=== PATIENT | male | born 1935 | race Asian ===

== ENCOUNTER 2019-07-11 13:40 | Inpatient (IN) | payer MEDICARE, OTHER ==
[2019-07-11] MEDS ORDERED: NACL 0.9% 1000 ML 1,000 ML IV ONE (13:58)
[2019-07-11 14:24] LABS: Basophils # (Auto) 0.1 K/mm3 (0.0-0.1); Basophils % (Auto) 1.4 % (0.0-1.8); Eosinophils % (Auto) 12.4 % (0.0-4.3); Hematocrit 42.4 % (35.5-45.6); Lymphocytes # (Auto) 2.9 K/mm3 (1.2-5.4); Mean Corpuscular HGB Conc 33 % (32-34); Mean Corpuscular Volume 87 fl (84-94); Monocytes # (Auto) 0.7 K/mm3 (0.0-0.8); Platelet Count 263 K/mm3 (140-440); Red Blood Count 4.86 M/mm3 (3.65-5.03); Red Cell Distribution Width 13.7 % (13.2-15.2)
[2019-07-11 14:36] LABS: INR 1.09 (0.87-1.13)
--- NOTE | 2019-07-11 14:38 | XRay Report ---
CHEST 1 VIEW INDICATION: Syncope. COMPARISON: None. FINDINGS: Support devices: None. Heart: Upper limits of normal. Lungs/Pleura: Low lung volumes with atelectatic changes in the bases. No pleural abnormality. IMPRESSION: 1. No acute findings. Signer Name: Alvarez Beck MD Signed: 07/11/2019 2:34 PM Workstation Name: [id number]
[2019-07-11 14:41] LABS: BUN/Creatinine Ratio 17; Blood Urea Nitrogen 15 mg/dL (9-20); Calcium 8.9 mg/dL (8.4-10.2); Hemolysis Index 13
[2019-07-11 14:43] LABS: Creatine Kinase MB 2.2 ng/mL (0.0-4.0)
[2019-07-11] MEDS ORDERED: NACL 0.9% 1000 ML IV ONE (14:43)
--- NOTE | 2019-07-11 14:46 | Emergency Department Report ---
ED General Adult HPI - General Chief complaint: Syncope Stated complaint: SYNCOPY Time Seen by Provider: 07/11/19 14:20 Source: patient, EMS, home care aide, RN notes reviewed ( EMS documentation not available at time of chart dictation ), old records reviewed Mode of arrival: Stretcher Limitations: Language Barrier, Other (the patient is a poor historian) - History of Present Illness Initial comments: French foreign language teacher: Respiratory therapist Beronica Corrales This is an 84-year-old gentleman. He reported that he follows with the [facility]. The patient does not know what medications he takes. The patient does not know if he has any chronic medical conditions. The patient is brought to the hospital by emergency medical services. History obtained from collateral information obtained from nursing staff, other physicians in this department, an d from the patient himself. Apparently, the patient was at hindu later on today, in choir (unknown if watching or participating), and reportedly had episode of either syncope, or near syncope. Apparently, the patient did not have any prodrome. The patient does not think that he hit his head. The patient complains of feeling weak. He denies physical pain. He cannot tell me how long he is feeling weak for. He doesn't have any recollection of the event in question. No additional history is available at this time. There are no witnesses available at this time for collateral information. Family is not available at this time for collateral information. As per verbal report from nursing team, patient hypotensive in the field with a blood pressure 85. The patient made no complaint of headache, neck pain, chest pain, abdominal pain. The patient did not know if he was having black stool or bright red blood per rectum. -: Sudden Quality: other Consistency: other Improves with: other Worsens with: other - Related Data Allergies Allergy/AdvReac Type Severity Reaction Status Date / Time No Known Allergies Allergy Verified 07/11/19 14:54 ED Review of Systems ROS: Stated complaint: SYNCOPY Other details as noted in HPI Comment: Unobtainable due to pts medical conditions Constitutional: malaise, weakness Cardiovascular: syncope Gastrointestinal: denies: abdominal pain Neurological: weakness ED Past Medical Hx - Past Medical History Previous Medical History?: Yes Hx Hypertension: Yes Hx Diabetes: Yes - Surgical History Past Surgical History?: No - Social History Smoking Status: Never Smoker Substance Use Type: None ED Physical Exam - General Limitations: Language Barrier, Physical Limitation General appearance: other (patient appears weak and listless) - Head Head exam: Present: atraumatic, normocephalic - Eye Eye exam: Present: normal appearance, EOMI. Absent: nystagmus - ENT ENT exam: Present: mucous membranes dry, normal external ear exam - Neck Neck exam: Present: normal inspection, full ROM. Absent: tenderness, meningismus - Respiratory Respiratory exam: Present: decreased breath sounds. Absent: respiratory distr ess, wheezes, rales, rhonchi, stridor - Cardiovascular Cardiovascular Exam: Present: regular rate, normal rhythm, normal heart sounds. Absent: bradycardia, tachycardia, irregular rhythm, systolic murmur, diastolic murmur, rubs, gallop - GI/Abdominal GI/Abdominal exam: Present: soft. Absent: distended, tenderness, guarding, rebound, rigid, pulsatile mass - Rectal Rectal exam: Present: normal inspection, normal rectal tone, heme (-) stool, other (chaperoned by nurse Aldo Delgado). Absent: black stool, bloody stool - exam: Present: normal inspection External exam: Present: normal external exam, other (chaperoned by nurse Carlson) - Extremities Exam Extremities exam: Present: normal inspection, other (2+ pulses noted in the bilateral upper, lower extremities. There is no long bone tenderness. Musculoskeletal compartments are soft. The pelvis is stable.). Absent: tenderness, calf tenderness - Back Exam Back exam: Present: normal inspection. Absent: tenderness, CVA tenderness (R), CVA tenderness (L), paraspinal tenderness, vertebral tenderness - Neurological Exam Neurological exam: Present: alert, other (there is no facial droop. The tongue is midline. The extraocular movements are intact bilaterally. There is 5/5 strength bilateral upper, lower extremities. The sensation is intact to light touch in 4 extremities.) - Psychiatric Psychiatric exam: Present: flat affect - Skin Skin exam: Present: warm, dry, intact, normal color. Absent: rash ED Course Vital Signs 07/11/19 07/11/19 07/11/19 14:35 15:00 15:01 Pulse Rate 64 65 Respiratory 14 16 Rate Blood Pressure 93/52 117/64 O2 Sat by Pulse 99 98 Oximetry - Reevaluation(s) Reevaluation #1: 10/13/19 15:01 Differential diagnosis, including not limited to: Environmental hypothermia, occult bacteremia, sepsis, pulmonary embolism, thyroid derangement, orthostasis, vagal event, structural cardiac disease, acute coronary syndrome Assessment and plan: 84-year-old elderly gentleman with episode of syncope versus near syncope, history of hypotension in the field, found to be hypothermic in the ER with a core temperature 95.8 degrees, nonfocal physical examination, blood pressure currently in the 120s. Using a bois forte foreign language teacher, we instructed patient that we would recommend IV fluids, empiric antibiotics, CT scan chest abdomen pelvis to exclude pulmonary embolism, and acute surgical process. We will discuss with the [facility] once his data points have been resulted. Active patient rewarming has been ordered. Reevaluation #2: 07/11/19 16:27 CT scan suggests pneumonia in the left lobe. CT scan abdomen and pelvis negative for acute disease, although bladder is distended. The patient is declining catheterization at this time Family has verbally endorse to nursing team that the patient had a negative urinalysis few weeks ago. Contacted the [facility], and discussed with Dr. Escalona, their physician coordinator. He has given authorization for the patient to be admitted to this hospital. On the Hospital physician is paged to arrange admission. Reevaluation #3: 07/11/19 16:33 Dr Conner accepts ED Medical Decision Making - Lab Data Result diagrams: 07/11/19 13:59 07/11/19 13:59 Vital Signs 07/11/19 15:01 Respiratory 16 Rate O2 Sat by Pulse 98 Oximetry Labs 07/11/19 07/11/19 07/11/19 13:59 13:59 13:59 WBC 8.4 RBC 4.86 Hgb 14.0 Hct 42.4 MCV 87 MCH 29 MCHC 33 RDW 13.7 Plt Count 263 Lymph % (Auto) 35.0 Haywood % (Auto) 8.0 H Eos % (Auto) 12.4 H Baso % (Auto) 1.4 Lymph # 2.9 Haywood # 0.7 Eos # 1.0 H Baso # 0.1 Seg Neutrophils % 43.2 Seg Neutrophils # 3.6 PT 13.8 INR 1.09 D-Dimer 194.43 Sodium 140 Potassium 4.1 Chloride 100.0 Carbon Dioxide 19 L Anion Gap 25 BUN 15 Creatinine 0.9 Estimated GFR > 60 BUN/Creatinine Ratio 17 Glucose 174 H Calcium 8.9 Magnesium 2.00 Total Creatine Kinase 85 CK-MB (CK-2) 2.2 CK-MB (CK-2) Rel Index 2.5 Troponin T < 0.010 Blood Type 07/11/19 14:05 WBC RBC Hgb Hct MCV MCH MCHC RDW Plt Count Lymph % (Auto) Haywood % (Auto) Eos % (Auto) Baso % (Auto) Lymph # Haywood # Eos # Baso # Seg Neutrophils % Seg Neutrophils # PT INR D-Dimer Sodium Potassium Chloride Carbon Dioxide Anion Gap BUN Creatinine Estimated GFR BUN/Creatinine Ratio Glucose Calcium Magnesium Total Creatine Kinase CK-MB (CK-2) CK-MB (CK-2) Rel Index Troponin T Blood Type O POSITIVE - EKG Data -: EKG Interpreted by Me EKG shows normal: sinus rhythm Rate: normal - EKG Data When compared to previous EKG there are: previous EKG unavailable 07/11/19 15:04 sinus 83 bpm normal axis qtc 63 bpm not c/w stemi no prior - Radiology Data Radiology results: report reviewed, image reviewed xr chest negative ct head: Critical Care Time: Yes Critical care time in (mins) excluding proc time.: 35 Critical care attestation.: If time is entered above; I have spent that time in minutes in the direct care of this critically ill patient, excluding procedure time. ED Disposition Clinical Impression: Hypothermia, Weakness Disposition: DC-09 OP ADMIT IP TO THIS HOSP Is pt being admited?: Yes Condition: Fair Referrals: PRIMARY CARE, [Primary Care Provider] - 3-5 Days
--- NOTE | 2019-07-11 14:58 | Cat Scan Report ---
CT HEAD WITHOUT CONTRAST INDICATION / CLINICAL INFORMATION: Syncope. TECHNIQUE: All CT scans at this location are performed using CT dose reduction for ALARA by means of automated e xposure control. COMPARISON: None available. FINDINGS: HEMORRHAGE: None. EXTRA-AXIAL SPACES: Mildly prominent likely related to cortical atrophy. VENTRICULAR SYSTEM: Moderately prominent likely related to deep atrophy. CEREBRAL PARENCHYMA: Basal ganglia calcifications. Mild white matter microangiopathy. No acute territ orial infarct. MIDLINE SHIFT OR HERNIATION: None. CEREBELLUM / BRAINSTEM: No significant abnormality. ORBITS: Normal as visualized. SOFT TISSUES of HEAD: No significant abnormality. CALVARIUM: No significant abnormality. PARANASAL SINUSES / MASTOID AIR CELLS: Normal as visualized. ADDITIONAL FINDINGS: None. IMPRESSION: 1. No acute intracranial abnormality. 2. Chronic and age-related findings. Signer Name: Ro Mederos MD Signed: 07/11/2019 2:53 PM Workstation Name: [email or web address]
[2019-07-11] MEDS ORDERED: ROCEPHIN/NS 2 GM/100 ML 2 GM/100 ML BAG IV SCH (15:00)
--- NOTE | 2019-07-11 16:19 | Cat Scan Report ---
CTA CHEST WITH IV CONTRAST INDICATION: near syncope hyypotension hypoxia. TECHNIQUE: Axial CT images were obtained through the chest after injection of IV contrast. 3 plane MIP reconstru ctions were produced. All CT scans at this location are performed using CT dose reduction for ALARA b y means of automated exposure control. COMPARISON: None available. FINDINGS: Pulmonary Arteries: Patient motion limits evaluation of the peripheral pulmonary arterial tree. Accou nting for this, no central PTE is seen. Thoracic Aorta: No acute abnormality. Heart: Normal. Coronary Arteries: No significant calcification. Lungs: There is a partially calcified 1.5 cm nodule in the right lung apex on series 4 image 91. In t he lateral right upper lobe, there is a 5 mm nodule which does not appear calcified (image 41). There is focal consolidative change within the lateral left upper lobe (around image 30 of the same series ). Mild emphysematous changes are noted. No pleural effusion. Pleura: No pleural effusion. No pneumothorax. Lymph Nodes: No significant adenopathy. Additional Findings: None. Skeletal Structures: No significant osseous abnormality. IMPRESSION: 1. Patient respiratory motion limits evaluation of the peripheral pulmonary arterial tree. Accounting for this, no central PTE is seen. 2. Focal consolidation in the lateral left lung apex is likely due to pneumonia. Radiographic follow- up is recommended after treatment to confirm resolution. 3. In addition to 1.5 cm calcified right upper lobe nodule, there is a punctate 5 mm noncalcified rig ht upper lobe nodule. See below for follow-up recommendations. 4. Mild emphysematous changes. INCIDENTAL PULMONARY NODULE RECOMMENDATIONS Solid Nodule size <6 mm -- Single or Multiple - Low Risk Patient: No routine follow-up - High Risk Patient: Optional CT at 12 months Note These recommendations do not apply to lung cancer screening, patients with immunosuppression, o r patients with known primary cancer. Note Newly detected indeterminate nodule in persons 35 years of age or older. Persons under the age of 35 should not receive follow-up unless there is a known primary cancer. Low Risk Patient -- minimal or absent history of smoking and of other known risk factors. High Risk Patient -- history of smoking or of other known risk factors. Nodule dimensions are average of long and short axes, rounded to the nearest millimeter. Based on 2017 Fleischner Society Guidelines found in Radiology 2017 284:228-243. [email or web address] [email or web address] Signer Name: Alvarez Beck MD Signed: 07/11/2019 4:14 PM Workstation Name: [id number]
--- NOTE | 2019-07-11 16:21 | Cat Scan Report ---
CT ABDOMEN AND PELVIS WITH IV CONTRAST INDICATION: near syncope hyypotension hypoxia. COMPARISON: None available. TECHNIQUE: All CT scans at this facility use dose modulation, automated exposure control, iterative reconstructi on or weight based dosing, when appropriate, to reduce radiation dose to as low as reasonably achieva ble. FINDINGS: Skeletal System: No acute abnormality. ABDOMEN: Liver: Mild hepatic steatosis. Simple cysts in the anterior left lobe. Gallbladder: No significant abnormality. Bile Ducts: No significant abnormality. Pancreas: No significant abnormality. Spleen: No significant abnormality. Adrenals: No significant abnormality. Right Kidney: No significant abnormality. There is a simple cyst arising the lateral cortex of the up per pole. Left Kidney: No significant abnormality. Upper GI tract: No significant abnormality. Lymph Nodes: No significant adenopathy. Aorta: No significant abnormality. Additional Findings: No significant abnormality. PELVIS: Colon: No acute abnormality. Right-sided diverticulosis is noted. Urinary Bladder and Distal Ureters: Bladder is mildly distended. Appendix: No significant abnormality. Lymph Nodes: No significant adenopathy. Additional Findings: Prostate is enlarged. IMPRESSION: 1. No acute process in the abdomen or pelvis. 2. Incidental findings, as above. Signer Name: Alvarez Beck MD Signed: 07/11/2019 4:17 PM Workstation Name: [id number]
[2019-07-11] MEDS ORDERED: ZITHROMAX PO ONE (16:32)
[2019-07-11 17:21] LABS: Bilirubin,Urine NEG (Negative); Blood,Urine SM (Negative); Color,Urine Straw (Yellow); Protein,Urine <15 mg/dL mg/dL (Negative); Urobilinogen,Urine < 2.0 mg/dL (<2.0)
[2019-07-11] MEDS ORDERED: NACL 0.9% 1000 ML 1,000 ML ONE (17:43)
[2019-07-11] MEDS ORDERED: ZITHROMAX ONE (18:37)
[2019-07-11] MEDS ORDERED: SODIUM CHLORIDE FLUSH SYRINGE 10 ML IV PRN (21:55)
[2019-07-11] MEDS ORDERED: REGLAN IV PRN (21:55)
[2019-07-11] MEDS ORDERED: ZOFRAN IV PRN (21:55)
[2019-07-11] MEDS ORDERED: PERCOCET 5/325 PO PRN (21:55)
[2019-07-11] MEDS ORDERED: TYLENOL PO PRN (21:55)
[2019-07-11] MEDS ORDERED: DUONEB *Not for PRN Use IH (21:58)
[2019-07-11] MEDS ORDERED: NACL 0.9% 1000 ML 1,000 ML IV SCH (22:00)
[2019-07-11] MEDS ORDERED: PROVENTIL IH PRN (22:16)
[2019-07-11] MEDS: FLOMAX PO SCH (22:53)
[2019-07-11] MEDS: PEPCID PO SCH (22:53)
[2019-07-11] MEDS: SODIUM CHLORIDE FLUSH SYRINGE 10 ML IV SCH (22:54)
[2019-07-11] MEDS: GLUCOPHAGE PO SCH (23:27)
[2019-07-11] MEDS: ZESTRIL PO SCH (23:28)
[2019-07-12 06:35] LABS: Basophils # (Auto) 0.1 K/mm3 (0.0-0.1); Basophils % (Auto) 0.8 % (0.0-1.8); Eosinophils # (Auto) 1.2 K/mm3 (0.0-0.4); Eosinophils % (Auto) 12.8 % (0.0-4.3); Hematocrit 39.7 % (35.5-45.6); Hemoglobin 13.2 gm/dl (11.8-15.2); Lymphocytes # (Auto) 3.3 K/mm3 (1.2-5.4); Mean Corpuscular HGB Conc 33 % (32-34); Mean Corpuscular Volume 87 fl (84-94); Monocytes # (Auto) 0.7 K/mm3 (0.0-0.8); Monocytes % (Auto) 7.9 % (0.0-7.3); Platelet Count 234 K/mm3 (140-440); Red Blood Count 4.59 M/mm3 (3.65-5.03); Red Cell Distribution Width 13.6 % (13.2-15.2)
[2019-07-12 06:56] LABS: Alanine Aminotransferase 29 units/L (7-56); Albumin 3.4 g/dL (3.9-5); BUN/Creatinine Ratio 20; Blood Urea Nitrogen 14 mg/dL (9-20); Calcium 7.8 mg/dL (8.4-10.2); Hemolysis Index 6
--- NOTE | 2019-07-12 07:03 | Event Note ---
Date: 07/11/19 See H/p in reports LLL pneumonia
[2019-07-12] MEDS ORDERED: NON-FORMULARY (Gabapentin [Neurontin] 800 MG) PO SCH (08:00)
--- NOTE | 2019-07-12 08:35 | History and Physical Report ---
CHIEF COMPLAINT: Passed out a couple of hours ago. HISTORY OF PRESENT ILLNESS: An 84-year-old Fijian male, apparently passed out at the mandaeism. The patient also complains of feeling weak and having cough. Cough productive of yellow sputum. No chest pain. Feels weak. No exacerbating or relieving factors. PAST MEDICAL HISTORY: Significant for hypertension, diabetes, and BPH. PAST SURGICAL HISTORY: None. SOCIAL HISTORY: Does not smoke. No alcohol, no recreational drugs. FAMILY HISTORY: Hypertension. REVIEW OF SYSTEMS: Significant for syncope and cough. Generalized weakness. Otherwise, review of systems negative. PHYSICAL EXAMINATION: GENERAL: Elderly male, cooperative during examination. VITAL SIGNS: Blood pressure is 146/62, temperature is 97.8, pulse is 73, sats are 99%. HEENT: Unremarkable. Pupils equal and reactive. NECK: Supple, no lymphadenopathy, no thyromegaly. LUNGS: Clear to auscultation and percussion. Good air entry. CARDIOVASCULAR: S1, S2 heard. No gallop, no murmur, no rub. Apical impulse in left fifth intercostal space in midclavicular line. ABDOMEN: Soft and benign. No hepatosplenomegaly. No guarding, no rigidity. Hernial orifices are normal. EXTREMITIES: Good pedal pulses. No pedal edema. CENTRAL NERVOUS SYSTEM: Alert and oriented x 4, nonfocal exam. SKIN: Normal. LABORATORY DATA: CBC is normal. Electrolytes are normal. Lactic acid is 3.9. Hemoglobin A1c is 7.9, glucose is 174. Albumin is 3.4. Urine is negative. Chest x-ray shows left lower lobe pneumonia. Abdominal pelvis CT shows no acute process in the abdomen or pelvis, significant for findings as above. ASSESSMENT AND PLAN: 1. Left lower lobe pneumonia. The patient initiated on Rocephin and azithromycin. Bronchodilators as necessary. 2. Hypertension. Continue antihypertensives in the form of lisinopril. 3. Type 2 diabetes. Continue metformin and Accu-Cheks. The patient may need to be on oral hypoglycemics, A1c is high. 4. Peripheral neuropathy. Continue gabapentin. 5. Benign prostatic hypertrophy. Continue Flomax 0.4 mg daily. 6. Deep venous thrombosis prophylaxis, Lovenox 40 mg subcutaneous daily and gastrointestinal prophylaxis. JOB# [id number] VSM/NTS MTDD
[2019-07-12] MEDS: HumaLOG SUB-Q SCH ×4 (10:26→23:23)
[2019-07-12] MEDS: SODIUM CHLORIDE FLUSH SYRINGE 10 ML IV SCH ×2 (10:26→23:23)
[2019-07-12] MEDS: ROCEPHIN/NS 2 GM/100 ML 2 GM/100 ML BAG IV SCH (10:28)
[2019-07-12] MEDS: GLUCOPHAGE PO SCH ×2 (10:29→17:46)
[2019-07-12] MEDS: PEPCID PO SCH ×2 (10:29→23:21)
[2019-07-12] MEDS: NEURONTIN PO SCH ×3 (10:29→23:21)
[2019-07-12] MEDS: ZESTRIL PO SCH (10:29)
[2019-07-12] MEDS: ZITHROMAX 500 MG in NACL 0.9% 250ML 250 ML IV SCH (10:31)
[2019-07-12] MEDS: FLOMAX PO SCH (10:31)
--- NOTE | 2019-07-12 10:53 | Consultation ---
History of Present Illness Consult date: 07/12/19 Consult reason: other (Near syncope) History of present illness: This is an 84-year old [place] male who was brought in with dizziness, admitt ed with near syncope. There were no report of chest pain, unusual shortness of breath or palpitations. Patient did not loose consciousness. Patient has a history of Diabetes, Hypertension and is followed by [facility]. There is no history of coronary artery disease. The patient had no recent cardiac workup. Chest x- ray is negative. A chest CTA reports suspected left sided pneumonia. Incidental finding of right upper lobe nodules. No evidence of PE. An ECG done on presentation is a normal sinus rhythm. Medications and Allergies Allergies Allergy/AdvReac Type Severity Reaction Status Date / Time No Known Allergies Allergy Verified 07/11/19 14:54 Home Medications Medication Instructions Recorded Confirmed Last Taken Type Gabapentin [Neurontin] 800 mg PO TID 07/11/19 07/11/19 Unknown History Lisinopril [Zestril TAB] 10 mg PO QDAY 07/11/19 07/11/19 Unknown History Tamsulosin [Flomax] 0.4 mg PO QDAY 07/11/19 07/11/19 Unknown History metFORMIN [Glucophage] 500 mg PO BID 07/11/19 07/11/19 Unknown History Active Meds: Active Medications Acetaminophen (Tylenol) 650 mg PO Q4H PRN PRN Reason: Pain MILD(1-3)/Fever >100.5/AMANDA Albuterol (Proventil) 2.5 mg IH Q3HRT PRN PRN Reason: Wheezing Enoxaparin Sodium (Lovenox) 40 mg SUB-Q QDAY@2200 RJ Famotidine (Pepcid) 20 mg PO BID [facility] Last Admin: 07/12/19 10:29 Dose: 20 mg Documented by: Gabapentin (Neurontin) 800 mg PO TID [facility] Last Admin: 07/12/19 10:29 Dose: 800 mg Documented by: Sodium Chloride (Nacl 0.9% 1000 Ml) 1,000 mls @ 75 mls/hr IV DIRECT RJ Stop: 07/12/19 11:00 Last Admin: 07/11/19 23:29 Dose: 75 mls/hr Documented by: Azithromycin 500 mg/ Sodium (Chloride) 250 mls @ 250 mls/hr IV Q24HR [facility]; Protocol Stop: 07/15/19 23:59 Last Admin: 07/12/19 10:31 Dose: 250 mls/hr Documented by: Ceftriaxone Sodium (Rocephin/Ns 2 Gm/100 Ml) 2 gm in 100 mls @ 200 mls/hr IV Q24HR [facility]; Protocol Last Admin: 07/12/19 10:28 Dose: 200 mls/hr Documented by: Insulin Human Lispro (Humalog) 0 unit SUB-Q ACHS [facility]; Protocol Last Admin: 07/12/19 10:26 Dose: Not Given Documented by: Lisinopril (Zestril) 10 mg PO QDAY [facility] Last Admin: 07/12/19 10:29 Dose: 10 mg Documented by: Metformin HCl (Glucophage) 500 mg PO BIDDIAB [facility] Last Admin: 07/12/19 10:29 Dose: 500 mg Documented by: Metoclopramide HCl (Reglan) 10 mg IV Q6H PRN PRN Reason: Nausea And Vomiting Ondansetron HCl (Zofran) 4 mg IV Q8H PRN PRN Reason: Nausea And Vomiting Oxycodone/Acetaminophen (Percocet 5/325) 1 tab PO Q6H PRN PRN Reason: Pain, Moderate (4-6) Sodium Chloride (Sodium Chloride Flush Syringe 10 Ml) 10 ml IV BID [facility] Last Admin: 07/12/19 10:26 Dose: 10 ml Documented by: Sodium Chloride (Sodium Chloride Flush Syringe 10 Ml) 10 ml IV PRN PRN PRN Reason: LINE FLUSH Tamsulosin HCl (Flomax) 0.4 mg PO QDAY [facility] Last Admin: 07/12/19 10:31 Dose: 0.4 mg Documented by: Physical Examination Vital Signs Pulse BP 64 93/52 07/11/19 14:35 07/11/19 14:35 General appearance: no acute distress HEENT: Positive: PERRL Neck: Positive: trachea midline Cardiac: Positive: Reg Rate and Rhythm Lungs: Positive: Decreased Breath Sounds Neuro: Positive: Grossly Intact Extremities: Absent: edema Results 07/12/19 05:27 07/12/19 05:27 Cardiac Enzymes 07/11/19 07/12/19 Range/Units 13:59 05:27 AST 20 (5-40) units/L CK-MB (CK-2) 2.2 (0.0-4.0) ng/mL Coagulation 10/13/19 Range/Units 13:59 PT 13.8 (12.2-14.9) Sec. INR 1.09 (0.87-1.13) CBC 07/11/19 07/12/19 Range/Units 13:59 05:27 WBC 8.4 9.4 (4.5-11.0) K/mm3 RBC 4.86 4.59 (3.65-5.03) M/mm3 Hgb 14.0 13.2 (11.8-15.2) gm/dl Hct 42.4 39.7 (35.5-45.6) % Plt Count 263 234 (140-440) K/mm3 Lymph # 2.9 3.3 (1.2-5.4) K/mm3 Bennett # 0.7 0.7 (0.0-0.8) K/mm3 Eos # 1.0 H 1.2 H (0.0-0.4) K/mm3 Baso # 0.1 0.1 (0.0-0.1) K/mm3 Comprehensive Metabolic Panel 07/11/19 07/12/19 Range/Units 13:59 05:27 Sodium 140 143 (137-145) mmol/L Potassium 4.1 3.9 (3.6-5.0) mmol/L Chloride 100.0 111.4 H (98-107) mmol/L Carbon Dioxide 19 L 19 L (22-30) mmol/L BUN 15 14 (9-20) mg/dL Creatinine 0.9 0.7 L (0.8-1.5) mg/dL Glucose 174 H 156 H (75-100) mg/dL Calcium 8.9 7.8 L (8.4-10.2) mg/dL AST 20 (5-40) units/L ALT 29 (7-56) units/L Alkaline Phosphatase 68 (35-129) units/L Total Protein 6.0 L (6.3-8.2) g/dL Albumin 3.4 L (3.9-5) g/dL Assessment and Plan Near syncope Suspected Pneumonia Diabetes Hypertension Plan: Echocardiogram for LVEF assessment. Pre-discharge persantine thallium stress test.
--- NOTE | 2019-07-12 12:07 | Progress Note ---
Assessment and Plan Assessment and plan: Syncope Admitted to [facility] Cardiology following For stress test in am Obtain orthostatics Pneumonia LLL Cont Ceftriaxone and Zithromax Diabeytes mellitus type 2 Fingerstick qac and hs Hypertension Monitor BP Full code status History Interval history: Patient passed out in [facility] Hospitalist Physical - Physical exam Narrative exam: Gen: Not in acute distress, sitting up in bed HEENT: Normocephalic, atraumatic Neck: supple, no JVD Heart: S1 and S2 reg, no murmurs, rubs or gallop Lungs: Clear to auscultation, no rhonchi, no wheeze Abd: soft, non tender, non distended, normal BS, Ext: No edema, no clubbing, no cyanosis Neuro: Awake, alert, oriented, moves all ext, no focal neurological signs - Constitutional Vitals: Temp Pulse Resp BP Pulse Ox 98.5 F 61 18 139/62 95 07/12/19 07:49 07/12/19 07:49 07/12/19 07:49 07/12/19 07:49 07/12/19 07:49 General appearance: Present: no acute distress Results - Labs CBC & Chem 7: 07/12/19 05:27 07/12/19 05:27 Labs: Laboratory Last Values WBC 9.4 K/mm3 (4.5-11.0) 07/12/19 05:27 RBC 4.59 M/mm3 (3.65-5.03) 07/12/19 05:27 Hgb 13.2 gm/dl (11.8-15.2) 07/12/19 05:27 Hct 39.7 % (35.5-45.6) 07/12/19 05:27 MCV 87 fl (84-94) 07/12/19 05:27 MCH 29 pg (28-32) 07/12/19 05:27 MCHC 33 % (32-34) 07/12/19 05:27 RDW 13.6 % (13.2-15.2) 07/12/19 05:27 Plt Count 234 K/mm3 (140-440) 07/12/19 05:27 Lymph % (Auto) 35.0 % (13.4-35.0) 07/12/19 05:27 [place] % (Auto) 7.9 % (0.0-7.3) H 07/12/19 05:27 Eos % (Auto) 12.8 % (0.0-4.3) H 07/12/19 05:27 Baso % (Auto) 0.8 % (0.0-1.8) 07/12/19 05:27 Lymph # 3.3 K/mm3 (1.2-5.4) 07/12/19 05:27 [place] # 0.7 K/mm3 (0.0-0.8) 07/12/19 05:27 Eos # 1.2 K/mm3 (0.0-0.4) H 07/12/19 05:27 Baso # 0.1 K/mm3 (0.0-0.1) 07/12/19 05:27 Seg Neutrophils % 43.5 % (40.0-70.0) 07/12/19 05:27 Seg Neutrophils # 4.1 K/mm3 (1.8-7.7) 07/12/19 05:27 PT 13.8 Sec. (12.2-14.9) 07/11/19 13:59 INR 1.09 (0.87-1.13) 07/11/19 13:59 D-Dimer 194.43 ng/mlDDU (0-234) 07/11/19 13:59 Sodium 143 mmol/L (137-145) 07/12/19 05:27 Potassium 3.9 mmol/L (3.6-5.0) 07/12/19 05:27 Chloride 111.4 mmol/L (98-107) H 07/12/19 05:27 Carbon Dioxide 19 mmol/L (22-30) L 07/12/19 05:27 Anion Gap 17 mmol/L 07/12/19 05:27 BUN 14 mg/dL (9-20) 07/12/19 05:27 Creatinine 0.7 mg/dL (0.8-1.5) L 07/12/19 05:27 Estimated GFR > 60 ml/min 07/12/19 05:27 BUN/Creatinine Ratio 20 % 07/12/19 05:27 Glucose 156 mg/dL (75-100) H 07/12/19 05:27 POC Glucose 189 (70-105) H 07/12/19 11:41 Hemoglobin A1c 7.9 % (4-6) H 07/11/19 13:59 Lactic Acid 1.80 mmol/L (0.7-2.0) 07/11/19 20:06 Calcium 7.8 mg/dL (8.4-10.2) L 07/12/19 05:27 Magnesium 2.00 mg/dL (1.7-2.3) 07/11/19 13:59 Total Bilirubin 0.70 mg/dL (0.1-1.2) 07/12/19 05:27 AST 20 units/L (5-40) 07/12/19 05:27 ALT 29 units/L (7-56) 07/12/19 05:27 Alkaline Phosphatase 68 units/L (35-129) 07/12/19 05:27 Total Creatine Kinase 85 units/L (55-170) 07/11/19 13:59 CK-MB (CK-2) 2.2 ng/mL (0.0-4.0) 07/11/19 13:59 CK-MB (CK-2) Rel Index 2.5 (0-4) 07/11/19 13:59 Troponin T < 0.010 ng/mL (0.00-0.029) 07/11/19 13:59 Total Protein 6.0 g/dL (6.3-8.2) L 07/12/19 05:27 Albumin 3.4 g/dL (3.9-5) L 07/12/19 05:27 Albumin/Globulin Ratio 1.3 % 07/12/19 05:27 TSH 3.750 mlU/mL (0.270-4.200) 07/11/19 15:07 Free T4 1.40 ng/dL (0.76-1.46) 07/11/19 15:07 Urine Color Straw (Yellow) 07/11/19 Unknown Urine Turbidity Clear (Clear) 07/11/19 Unknown Urine pH 7.0 (5.0-7.0) 07/11/19 Unknown Ur Specific [place] 1.016 (1.003-1.030) 07/11/19 Unknown Urine Protein <15 mg/dl mg/dL (Negative) 07/11/19 Unknown Urine Glucose (UA) Neg mg/dL (Negative) 07/11/19 Unknown Urine Ketones Neg mg/dL (Negative) 07/11/19 Unknown Urine Blood Sm (Negative) 07/11/19 Unknown Urine Nitrite Neg (Negative) 07/11/19 Unknown Urine Bilirubin Neg (Negative) 07/11/19 Unknown Urine Urobilinogen < 2.0 mg/dL (<2.0) 07/11/19 Unknown Ur Leukocyte Esterase Neg (Negative) 07/11/19 Unknown Urine WBC (Auto) 2.0 /HPF (0.0-6.0) 07/11/19 Unknown Urine RBC (Auto) 1.0 /HPF (0.0-6.0) 07/11/19 Unknown U Epithel Cells (Auto) < 1.0 /HPF (0-13.0) 07/11/19 Unknown Salicylates < 0.3 mg/dL (2.8-20.0) L 07/11/19 15:07 Acetaminophen < 5.0 ug/mL (10.0-30.0) L 07/11/19 15:07 Blood Type O POSITIVE 07/11/19 14:05 Antibody Screen Negative 07/11/19 14:05 Active Medications - Current Medications Current Medications: Generic Name Dose Route Start Last Admin Trade Name Freq PRN Reason Stop Dose Admin Acetaminophen 650 mg 07/11/19 21:55 Tylenol PO Q4H PRN Pain MILD(1-3)/Fever >100.5/AMANDA Albuterol 2.5 mg 07/11/19 22:16 Proventil IH Q3HRT PRN Wheezing Enoxaparin Sodium 40 mg 07/12/19 22:00 Lovenox SUB-Q QDAY@2200 RJ Famotidine 20 mg 07/11/19 22:00 07/12/19 10:29 Pepcid PO 20 mg BID RJ Administration Gabapentin 800 mg 07/12/19 08:00 07/12/19 10:29 Neurontin PO 800 mg TID RJ Administration Azithromycin 500 mg/ Sodium 250 mls @ 250 mls/hr 07/12/19 10:00 07/12/19 10:31 Chloride IV 07/15/19 23:59 250 mls/hr Q24HR RJ Administration Protocol Ceftriaxone Sodium 2 gm in 100 mls @ 200 mls/hr 07/12/19 10:00 07/12/19 10:28 Rocephin/Ns 2 Gm/100 Ml IV 200 mls/hr Q24HR RJ Administration Protocol Insulin Human Lispro 0 unit 07/12/19 07:30 07/12/19 10:26 Humalog SUB-Q Not Given ACHS RJ Protocol Lisinopril 10 mg 07/11/19 22:00 07/12/19 10:29 Zestril PO 10 mg QDAY RJ Administration Metformin HCl 500 mg 07/11/19 22:00 07/12/19 10:29 Glucophage PO 500 mg BIDDIAB RJ Administration Metoclopramide HCl 10 mg 07/11/19 21:55 Reglan IV Q6H PRN Nausea And Vomiting Ondansetron HCl 4 mg 07/11/19 21:55 Zofran IV Q8H PRN Nausea And Vomiting Oxycodone/Acetaminophen 1 tab 07/11/19 21:55 Percocet 5/325 PO Q6H PRN Pain, Moderate (4-6) Sodium Chloride 10 ml 07/11/19 22:00 07/12/19 10:26 Sodium Chloride Flush Syringe 10 Ml IV 10 ml BID RJ Administration Sodium Chloride 10 ml 07/11/19 21:55 Sodium Chloride Flush Syringe 10 Ml IV PRN PRN LINE FLUSH Tamsulosin HCl 0.4 mg 07/11/19 22:00 07/12/19 10:31 Flomax PO 0.4 mg QDAY RJ Administration
--- NOTE | 2019-07-12 16:22 | Consultation ---
History of Present Illness Consult date: 07/12/19 Requesting physician: FRANCO TANG Reason for consult: pneumonia History of present illness: 84 yo developed diaphoresis and near-syncopal episode yesterday, without complaints of SOB, chest pain, fevers, chills, cough, sputum, hemoptysis. CTA chest showed pneumonia and nodule. Active Medications Acetaminophen (Tylenol) 650 mg PO Q4H PRN PRN Reason: Pain MILD(1-3)/Fever >100.5/AMANDA Albuterol (Proventil) 2.5 mg IH Q3HRT PRN PRN Reason: Wheezing Enoxaparin Sodium (Lovenox) 40 mg SUB-Q QDAY@2200 RJ Famotidine (Pepcid) 20 mg PO BID [facility] Last Admin: 07/12/19 10:29 Dose: 20 mg Documented by: Gabapentin (Neurontin) 800 mg PO TID [facility] Last Admin: 07/12/19 15:14 Dose: 800 mg Documented by: Azithromycin 500 mg/ Sodium (Chloride) 250 mls @ 250 mls/hr IV Q24HR [facility]; Protocol Stop: 07/15/19 23:59 Last Admin: 07/12/19 10:31 Dose: 250 mls/hr Documented by: Ceftriaxone Sodium (Rocephin/Ns 2 Gm/100 Ml) 2 gm in 100 mls @ 200 mls/hr IV Q24HR [facility]; Protocol Last Admin: 07/12/19 10:28 Dose: 200 mls/hr Documented by: Insulin Human Lispro (Humalog) 0 unit SUB-Q ACHS [facility]; Protocol Last Admin: 07/12/19 12:34 Dose: 2 unit Documented by: Lisinopril (Zestril) 10 mg PO QDAY [facility] Last Admin: 07/12/19 10:29 Dose: 10 mg Documented by: Metformin HCl (Glucophage) 500 mg PO BIDDIAB [facility] Last Admin: 07/12/19 10:29 Dose: 500 mg Documented by: Metoclopramide HCl (Reglan) 10 mg IV Q6H PRN PRN Reason: Nausea And Vomiting Ondansetron HCl (Zofran) 4 mg IV Q8H PRN PRN Reason: Nausea And Vomiting Oxycodone/Acetaminophen (Percocet 5/325) 1 tab PO Q6H PRN PRN Reason: Pain, Moderate (4-6) Sodium Chloride (Sodium Chloride Flush Syringe 10 Ml) 10 ml IV BID [facility] Last Admin: 07/12/19 10:26 Dose: 10 ml Documented by: Sodium Chloride (Sodium Chloride Flush Syringe 10 Ml) 10 ml IV PRN PRN PRN Reason: LINE FLUSH Tamsulosin HCl (Flomax) 0.4 mg PO QDAY [facility] Last Admin: 07/12/19 10:31 Dose: 0.4 mg Documented by: Past History Past Medical History: other (BPH, Peripheral neuropathy, HTN) Social history: full code. denies: smoking, alcohol abuse, prescription drug abuse, IV drug use Family history: other (No pulm issues) Medications and Allergies Allergies Allergy/AdvReac Type Severity Reaction Status Date / Time No Known Allergies Allergy Verified 07/11/19 14:54 Home Medications Medication Instructions Recorded Confirmed Last Taken Type Gabapentin [Neurontin] 800 mg PO TID 07/11/19 07/11/19 Unknown History Lisinopril [Zestril TAB] 10 mg PO QDAY 07/11/19 07/11/19 Unknown History Tamsulosin [Flomax] 0.4 mg PO QDAY 07/11/19 07/11/19 Unknown History metFORMIN [Glucophage] 500 mg PO BID 07/11/19 07/11/19 Unknown History Active Meds: Active Medications Acetaminophen (Tylenol) 650 mg PO Q4H PRN PRN Reason: Pain MILD(1-3)/Fever >100.5/AMANDA Albuterol (Proventil) 2.5 mg IH Q3HRT PRN PRN Reason: Wheezing Enoxaparin Sodium (Lovenox) 40 mg SUB-Q QDAY@2200 [facility] Famotidine (Pepcid) 20 mg PO BID [facility] Last Admin: 07/12/19 10:29 Dose: 20 mg Documented by: Gabapentin (Neurontin) 800 mg PO TID [facility] Last Admin: 07/12/19 15:14 Dose: 800 mg Documented by: Azithromycin 500 mg/ Sodium (Chloride) 250 mls @ 250 mls/hr IV Q24HR [facility]; Protocol Stop: 07/15/19 23:59 Last Admin: 07/12/19 10:31 Dose: 250 mls/hr Documented by: Ceftriaxone Sodium (Rocephin/Ns 2 Gm/100 Ml) 2 gm in 100 mls @ 200 mls/hr IV Q24HR [facility]; Protocol Last Admin: 07/12/19 10:28 Dose: 200 mls/hr Documented by: Insulin Human Lispro (Humalog) 0 unit SUB-Q ACHS [facility]; Protocol Last Admin: 07/12/19 12:34 Dose: 2 unit Documented by: Lisinopril (Zestril) 10 mg PO QDAY [facility] Last Admin: 07/12/19 10:29 Dose: 10 mg Documented by: Metformin HCl (Glucophage) 500 mg PO BIDDIAB [facility] Last Admin: 07/12/19 10:29 Dose: 500 mg Documented by: Metoclopramide HCl (Reglan) 10 mg IV Q6H PRN PRN Reason: Nausea And Vomiting Ondansetron HCl (Zofran) 4 mg IV Q8H PRN PRN Reason: Nausea And Vomiting Oxycodone/Acetaminophen (Percocet 5/325) 1 tab PO Q6H PRN PRN Reason: Pain, Moderate (4-6) Sodium Chloride (Sodium Chloride Flush Syringe 10 Ml) 10 ml IV BID [facility] Last Admin: 07/12/19 10:26 Dose: 10 ml Documented by: Sodium Chloride (Sodium Chloride Flush Syringe 10 Ml) 10 ml IV PRN PRN PRN Reason: LINE FLUSH Tamsulosin HCl (Flomax) 0.4 mg PO QDAY [facility] Last Admin: 07/12/19 10:31 Dose: 0.4 mg Documented by: Review of Systems All systems: negative Physical Examination Vital signs: Vital Signs Pulse BP 64 93/52 07/11/19 14:35 07/11/19 14:35 Vital Signs - 24 hr 07/11/19 07/11/19 07/11/19 17:01 17:30 17:41 Temperature Pulse Rate 70 68 67 Respiratory 17 12 21 Rate Blood Pressure 140/71 146/62 146/62 O2 Sat by Pulse 98 100 98 Oximetry 07/11/19 07/11/19 07/11/19 17:51 18:00 18:17 Temperature Pulse Rate 63 67 Respiratory 17 15 Rate Blood Pressure 146/62 150/58 146/62 O2 Sat by Pulse 97 99 97 Oximetry 07/11/19 07/11/19 07/11/19 18:21 18:31 21:10 Temperature 97.8 F Pulse Rate 73 Respiratory 20 Rate Blood Pressure 146/62 140/68 167/73 O2 Sat by Pulse 99 99 96 Oximetry 07/11/19 07/12/19 07/12/19 23:28 02:51 07:49 Temperature 98.4 F 98.5 F Pulse Rate 73 70 61 Respiratory 18 18 Rate Blood Pressure 167/73 146/64 139/62 O2 Sat by Pulse 97 95 Oximetry 07/12/19 13:12 Temperature 98.0 F Pulse Rate 63 Respiratory 18 Rate Blood Pressure 153/70 O2 Sat by Pulse 99 Oximetry General appearance: no acute distress, alert Eyes: non-icteric Neck: supple Effort: normal Ascultation: Bilateral: clear Cardiovascular: regular rate and rhythm (no mrg) Gastrointestinal: normoactive bowel sounds, soft, non-tender, non-distended Integumentary: normal Extremities: no cyanosis, no edema, pink and warm Musculoskeletal: no deformities normal mental status, non-focal exam, pupils equal and round, CN II-XII normal mood appropriate, affect normal Results - Laboratory Findings CBC and BMP: 07/12/19 05:27 07/12/19 05:27 PT/INR, D-dimer PT 13.8 Sec. (12.2-14.9) 07/11/19 13:59 INR 1.09 (0.87-1.13) 07/11/19 13:59 D-Dimer 194.43 ng/mlDDU (0-234) 07/11/19 13:59 Abnormal lab findings: Abnormal Labs 07/11/19 07/11/19 07/11/19 13:59 13:59 13:59 [place] % (Auto) 8.0 H Eos % (Auto) 12.4 H Eos # 1.0 H Chloride Carbon Dioxide 19 L Creatinine Glucose 174 H POC Glucose Hemoglobin A1c 7.9 H Lactic Acid Calcium Total Protein Albumin Salicylates Acetaminophen 07/11/19 07/11/19 07/11/19 15:07 15:07 15:07 [place] % (Auto) Eos % (Auto) Eos # Chloride Carbon Dioxide Creatinine Glucose POC Glucose Hemoglobin A1c Lactic Acid 3.90 H* Calcium Total Protein Albumin Salicylates < 0.3 L Acetaminophen < 5.0 L 07/11/19 07/11/19 07/12/19 15:58 23:06 05:27 [place] % (Auto) 7.9 H Eos % (Auto) 12.8 H Eos # 1.2 H Chloride Carbon Dioxide Creatinine Glucose POC Glucose 147 H 187 H Hemoglobin A1c Lactic Acid Calcium Total Protein Albumin Salicylates Acetaminophen 07/12/19 07/12/19 07/12/19 05:27 07:47 11:41 [place] % (Auto) Eos % (Auto) Eos # Chloride 111.4 H Carbon Dioxide 19 L Creatinine 0.7 L Glucose 156 H POC Glucose 120 H 189 H Hemoglobin A1c Lactic Acid Calcium 7.8 L Total Protein 6.0 L Albumin 3.4 L Salicylates Acetaminophen - Diagnostic Findings Chest x-ray: report reviewed, image reviewed CT scan - chest: report reviewed, image reviewed Assessment and Plan Imp: 1. CAP, JENNY 2. Pulm nodule RUL 3. Pre-syncope 4. HTN Rec: 1. Agree w/ Rocephin/Azithro; complete at least 7 days of ABX 2. Outpatient PET recommended for RUL nodule, and this will be used to ensure the JENNY process resolves as well 3. Cardiac work-up as recommended No family present and patient does not speak [place]. Thanks for the consult.
[2019-07-12] MEDS: LOVENOX SUB-Q SCH (23:21)
[2019-07-13 06:25] LABS: Hematocrit 41.2 % (35.5-45.6); Hemoglobin 13.5 gm/dl (11.8-15.2); Mean Corpuscular HGB Conc 33 % (32-34); Mean Corpuscular Volume 87 fl (84-94); Platelet Count 248 K/mm3 (140-440); Red Blood Count 4.73 M/mm3 (3.65-5.03); Red Cell Distribution Width 13.7 % (13.2-15.2)
[2019-07-13 06:41] LABS: BUN/Creatinine Ratio 25; Blood Urea Nitrogen 15 mg/dL (9-20); Calcium 8.6 mg/dL (8.4-10.2); Hemolysis Index 14
[2019-07-13] MEDS ORDERED: LEXISCAN IV ONE ×2 (07:04→07:43)
[2019-07-13] MEDS: HumaLOG SUB-Q SCH ×4 (07:55→22:17)
[2019-07-13] MEDS: NEURONTIN PO SCH ×3 (08:19→22:16)
[2019-07-13] MEDS: GLUCOPHAGE PO SCH ×2 (08:19→17:46)
[2019-07-13] MEDS: PEPCID PO SCH ×2 (11:49→22:16)
[2019-07-13] MEDS: FLOMAX PO SCH (11:49)
[2019-07-13] MEDS: ZESTRIL PO SCH (11:50)
[2019-07-13] MEDS: ROCEPHIN/NS 2 GM/100 ML 2 GM/100 ML BAG IV SCH (11:50)
[2019-07-13] MEDS: SODIUM CHLORIDE FLUSH SYRINGE 10 ML IV SCH ×2 (11:50→22:17)
[2019-07-13] MEDS: ZITHROMAX 500 MG in NACL 0.9% 250ML 250 ML IV SCH (12:35)
--- NOTE | 2019-07-13 13:09 | Event Note ---
Date: 07/13/19 Patient underwent a Lexiscan thallium stress test, normal myocardial perfusion and normal left ventricular systolic function. Echocardiogram shows normal left ventricle systolic function, ejection fraction 60-65%. The patient is stable for cardiac discharge. As outpatient, we will consider event monitoring if there are recurrent symptoms.
--- NOTE | 2019-07-13 16:38 | Progress Note ---
Assessment and Plan Imp: 1. CAP, JENNY 2. Pulm nodule RUL 3. Pre-syncope 4. HTN Rec: 1. Agree w/ Rocephin/Azithro; complete at least 7 days of ABX 2. Outpatient PET recommended for RUL nodule, and this will be used to ensure the JENNY process resolves as well; I attempted to call family to discuss this with them today but no answer; patient is followed in the [facility] 3. Cardiac work-up negative No family present and patient does not speak Canadian. Thanks for the consult. Subjective Date of service: 07/13/19 Principal diagnosis: Pneumonia Interval history: No events. No complaints. Active Medications Acetaminophen (Tylenol) 650 mg PO Q4H PRN PRN Reason: Pain MILD(1-3)/Fever >100.5/AMANDA Albuterol (Proventil) 2.5 mg IH Q3HRT PRN PRN Reason: Wheezing Enoxaparin Sodium (Lovenox) 40 mg SUB-Q QDAY@2200 [facility] Last Admin: 07/12/19 23:21 Dose: 40 mg Documented by: Famotidine (Pepcid) 20 mg PO BID [facility] Last Admin: 07/13/19 11:49 Dose: 20 mg Documented by: Gabapentin (Neurontin) 800 mg PO TID [facility] Last Admin: 07/13/19 13:57 Dose: 800 mg Documented by: Azithromycin 500 mg/ Sodium (Chloride) 250 mls @ 250 mls/hr IV Q24HR [facility]; Protocol Stop: 07/15/19 23:59 Last Admin: 07/13/19 12:35 Dose: 250 mls/hr Documented by: Ceftriaxone Sodium (Rocephin/Ns 2 Gm/100 Ml) 2 gm in 100 mls @ 200 mls/hr IV Q24HR [facility]; Protocol Last Admin: 07/13/19 11:50 Dose: 200 mls/hr Documented by: Insulin Human Lispro (Humalog) 0 unit SUB-Q ACHS [facility]; Protocol Last Admin: 07/13/19 11:51 Dose: Not Given Documented by: Lisinopril (Zestril) 10 mg PO QDAY [facility] Last Admin: 07/13/19 11:50 Dose: 10 mg Documented by: Metformin HCl (Glucophage) 500 mg PO BIDDIAB [facility] Last Admin: 07/13/19 08:19 Dose: Not Given Documented by: Metoclopramide HCl (Reglan) 10 mg IV Q6H PRN PRN Reason: Nausea And Vomiting Ondansetron HCl (Zofran) 4 mg IV Q8H PRN PRN Reason: Nausea And Vomiting Oxycodone/Acetaminophen (Percocet 5/325) 1 tab PO Q6H PRN PRN Reason: Pain, Moderate (4-6) Sodium Chloride (Sodium Chloride Flush Syringe 10 Ml) 10 ml IV BID [facility] Last Admin: 07/13/19 11:50 Dose: 10 ml Documented by: Sodium Chloride (Sodium Chloride Flush Syringe 10 Ml) 10 ml IV PRN PRN PRN Reason: LINE FLUSH Tamsulosin HCl (Flomax) 0.4 mg PO QDAY [facility] Last Admin: 07/13/19 11:49 Dose: 0.4 mg Documented by: Objective Vital Signs - 12hr 07/13/19 07/13/19 07/13/19 07:16 09:00 09:38 Temperature 98.6 F Pulse Rate 75 Pulse Rate [ 75 Right Radial] Respiratory 18 18 Rate Blood Pressure 156/69 173/85 O2 Sat by Pulse 95 95 Oximetry 07/13/19 07/13/19 07/13/19 10:13 10:15 10:17 Temperature Pulse Rate Pulse Rate [ Right Radial] Respiratory Rate Blood Pressure 165/78 140/71 185/83 O2 Sat by Pulse Oximetry 07/13/19 07/13/19 07/13/19 10:19 10:20 11:50 Temperature Pulse Rate 67 Pulse Rate [ Right Radial] Respiratory Rate Blood Pressure 185/86 172/79 160/76 O2 Sat by Pulse 97 Oximetry 07/13/19 13:45 Temperature 97.9 F Pulse Rate 58 L Pulse Rate [ Right Radial] Respiratory 18 Rate Blood Pressure 160/73 O2 Sat by Pulse 97 Oximetry Constitutional: no acute distress, alert Eyes: non-icteric Neck: supple Effort: normal Ascultation: Bilateral: clear Cardiovascular: regular rate and rhythm (no mrg) Gastrointestinal: normoactive bowel sounds, soft, non-tender, non-distended Integumentary: normal Extremities: no cyanosis, no edema, pink and warm Neurologic: normal mental status, non-focal exam, pupils equal and round, CN II- XII normal Psychiatric: mood appropriate, affect normal CBC and BMP: 07/13/19 05:56 07/13/19 05:56 ABG, PT/INR, D-dimer: PT/INR, D-dimer PT 13.8 Sec. (12.2-14.9) 07/11/19 13:59 INR 1.09 (0.87-1.13) 07/11/19 13:59 D-Dimer 194.43 ng/mlDDU (0-234) 07/11/19 13:59 Abnormal lab findings: Abnormal Labs 07/11/19 07/11/19 07/11/19 13:59 13:59 13:59 WBC [place] % (Auto) 8.0 H Eos % (Auto) 12.4 H Eos # 1.0 H Chloride Carbon Dioxide 19 L Creatinine Glucose 174 H POC Glucose Hemoglobin A1c 7.9 H Lactic Acid Calcium Total Protein Albumin Salicylates Acetaminophen 07/11/19 07/11/19 07/11/19 15:07 15:07 15:07 WBC [place] % (Auto) Eos % (Auto) Eos # Chloride Carbon Dioxide Creatinine Glucose POC Glucose Hemoglobin A1c Lactic Acid 3.90 H* Calcium Total Protein Albumin Salicylates < 0.3 L Acetaminophen < 5.0 L 07/11/19 07/11/19 07/12/19 15:58 23:06 05:27 WBC [place] % (Auto) 7.9 H Eos % (Auto) 12.8 H Eos # 1.2 H Chloride Carbon Dioxide Creatinine Glucose POC Glucose 147 H 187 H Hemoglobin A1c Lactic Acid Calcium Total Protein Albumin Salicylates Acetaminophen 07/12/19 07/12/19 07/12/19 05:27 07:47 11:41 WBC [place] % (Auto) Eos % (Auto) Eos # Chloride 111.4 H Carbon Dioxide 19 L Creatinine 0.7 L Glucose 156 H POC Glucose 120 H 189 H Hemoglobin A1c Lactic Acid Calcium 7.8 L Total Protein 6.0 L Albumin 3.4 L Salicylates Acetaminophen 07/12/19 07/12/19 07/13/19 16:35 20:49 05:56 WBC 11.3 H [place] % (Auto) Eos % (Auto) Eos # Chloride Carbon Dioxide Creatinine Glucose POC Glucose 119 H 175 H Hemoglobin A1c Lactic Acid Calcium Total Protein Albumin Salicylates Acetaminophen 07/13/19 07/13/19 07/13/19 05:56 07:24 11:53 WBC [place] % (Auto) Eos % (Auto) Eos # Chloride 107.9 H Carbon Dioxide 21 L Creatinine 0.6 L Glucose 127 H POC Glucose 159 H 146 H Hemoglobin A1c Lactic Acid Calcium Total Protein Albumin Salicylates Acetaminophen 07/13/19 16:31 WBC [place] % (Auto) Eos % (Auto) Eos # Chloride Carbon Dioxide Creatinine Glucose POC Glucose 122 H Hemoglobin A1c Lactic Acid Calcium Total Protein Albumin Salicylates Acetaminophen Chest x-ray: report reviewed, image reviewed CT scan - chest: report reviewed, image reviewed
--- NOTE | 2019-07-13 18:40 | Progress Note ---
Assessment and Plan Assessment and plan: Per documented hx. This is an 84-year-old gentleman. The patient does not know if he has any chronic medical conditions. The patient is brought to the hospital by emergency medical services. History obtained from collateral information obtained from nursing staff, other physicians in this department, a nd from the patient himself. Apparently, the patient was at [employer] later on today, in choir (unknown if watching or participating), and reportedly had episode of either syncope, or near syncope. Apparently, the patient did not have any prodrome. The patient does not think that he hit his head. The patient complains of feeling weak. He denies physical pain. He cannot tell me how long he is feeling weak for. He doesn't have any recollection of the event in question. No additional history is available at this time. There are no witnesses available at this time for collateral information. Family is not available at this time for collateral information. As per verbal report from nursing team, patient hypotensive in the field with a blood pressure 85. The patient made no complaint of headache, neck pain, chest pain, abdominal pain. The patient did not know if he was having black stool or bright red blood per rectum. Vasovegal syncope Cardiology following Stress test is negative Await PT/OT Pneumonia LLL Cont Ceftriaxone and Zithromax- complete 7 days of treatment, Pulmonary Nodule Out patient follow up as recommend Diabetes mellitus type 2 Fingerstick qac and hs Hypertension Monitor BP Full code status Anticipate discharge in am if remains stable History Interval history: Patient seen and examined, no acute distress at this time. Resting comfortably Hospitalist Physical - Physical exam Narrative exam: Gen: Not in acute distress, Returned from test HEENT: Normocephalic, atraumatic Neck: supple, no JVD Heart: S1 and S2 reg, no murmurs, rubs or gallop Lungs: Clear to auscultation, no rhonchi, no wheeze Abd: soft, non tender, non distended, normal BS, Ext: No edema, no clubbing, no cyanosis Neuro: Awake, alert, oriented, moves all ext, no focal neurological signs - Constitutional Vitals: Temp Pulse Resp BP Pulse Ox 97.9 F 58 L 18 160/73 97 07/13/19 13:45 07/13/19 13:45 07/13/19 13:45 07/13/19 13:45 07/13/19 13:45 General appearance: Present: no acute distress Results - Labs CBC & Chem 7: 07/14/19 05:48 07/14/19 05:48 Labs: Laboratory Last Values WBC 11.3 K/mm3 (4.5-11.0) H 07/13/19 05:56 RBC 4.73 M/mm3 (3.65-5.03) 07/13/19 05:56 Hgb 13.5 gm/dl (11.8-15.2) 07/13/19 05:56 Hct 41.2 % (35.5-45.6) 07/13/19 05:56 MCV 87 fl (84-94) 07/13/19 05:56 MCH 29 pg (28-32) 07/13/19 05:56 MCHC 33 % (32-34) 07/13/19 05:56 RDW 13.7 % (13.2-15.2) 07/13/19 05:56 Plt Count 248 K/mm3 (140-440) 07/13/19 05:56 Lymph % (Auto) 35.0 % (13.4-35.0) 07/12/19 05:27 Runnels % (Auto) 7.9 % (0.0-7.3) H 07/12/19 05:27 Eos % (Auto) 12.8 % (0.0-4.3) H 07/12/19 05:27 Baso % (Auto) 0.8 % (0.0-1.8) 07/12/19 05:27 Lymph # 3.3 K/mm3 (1.2-5.4) 07/12/19 05:27 Runnels # 0.7 K/mm3 (0.0-0.8) 07/12/19 05:27 Eos # 1.2 K/mm3 (0.0-0.4) H 07/12/19 05:27 Baso # 0.1 K/mm3 (0.0-0.1) 07/12/19 05:27 Seg Neutrophils % 43.5 % (40.0-70.0) 07/12/19 05:27 Seg Neutrophils # 4.1 K/mm3 (1.8-7.7) 07/12/19 05:27 PT 13.8 Sec. (12.2-14.9) 07/11/19 13:59 INR 1.09 (0.87-1.13) 07/11/19 13:59 D-Dimer 194.43 ng/mlDDU (0-234) 07/11/19 13:59 Sodium 142 mmol/L (137-145) 07/13/19 05:56 Potassium 3.7 mmol/L (3.6-5.0) 07/13/19 05:56 Chloride 107.9 mmol/L (98-107) H 07/13/19 05:56 Carbon Dioxide 21 mmol/L (22-30) L 07/13/19 05:56 Anion Gap 17 mmol/L 07/13/19 05:56 BUN 15 mg/dL (9-20) 07/13/19 05:56 Creatinine 0.6 mg/dL (0.8-1.5) L 07/13/19 05:56 Estimated GFR > 60 ml/min 07/13/19 05:56 BUN/Creatinine Ratio 25 % 07/13/19 05:56 Glucose 127 mg/dL (75-100) H 07/13/19 05:56 POC Glucose 122 (70-105) H 07/13/19 16:31 Hemoglobin A1c 7.9 % (4-6) H 07/11/19 13:59 Lactic Acid 1.80 mmol/L (0.7-2.0) 07/11/19 20:06 Calcium 8.6 mg/dL (8.4-10.2) 07/13/19 05:56 Magnesium 2.00 mg/dL (1.7-2.3) 07/11/19 13:59 Total Bilirubin 0.70 mg/dL (0.1-1.2) 07/12/19 05:27 AST 20 units/L (5-40) 07/12/19 05:27 ALT 29 units/L (7-56) 07/12/19 05:27 Alkaline Phosphatase 68 units/L (35-129) 07/12/19 05:27 Total Creatine Kinase 85 units/L (55-170) 07/11/19 13:59 CK-MB (CK-2) 2.2 ng/mL (0.0-4.0) 07/11/19 13:59 CK-MB (CK-2) Rel Index 2.5 (0-4) 07/11/19 13:59 Troponin T < 0.010 ng/mL (0.00-0.029) 07/11/19 13:59 Total Protein 6.0 g/dL (6.3-8.2) L 07/12/19 05:27 Albumin 3.4 g/dL (3.9-5) L 07/12/19 05:27 Albumin/Globulin Ratio 1.3 % 07/12/19 05:27 TSH 3.750 mlU/mL (0.270-4.200) 07/11/19 15:07 Free T4 1.40 ng/dL (0.76-1.46) 07/11/19 15:07 Urine Color Straw (Yellow) 07/11/19 Unknown Urine Turbidity Clear (Clear) 07/11/19 Unknown Urine pH 7.0 (5.0-7.0) 07/11/19 Unknown Ur Specific [place] 1.016 (1.003-1.030) 07/11/19 Unknown Urine Protein <15 mg/dl mg/dL (Negative) 07/11/19 Unknown Urine Glucose (UA) Neg mg/dL (Negative) 07/11/19 Unknown Urine Ketones Neg mg/dL (Negative) 07/11/19 Unknown Urine Blood Sm (Negative) 07/11/19 Unknown Urine Nitrite Neg (Negative) 07/11/19 Unknown Urine Bilirubin Neg (Negative) 07/11/19 Unknown Urine Urobilinogen < 2.0 mg/dL (<2.0) 07/11/19 Unknown Ur Leukocyte Esterase Neg (Negative) 07/11/19 Unknown Urine WBC (Auto) 2.0 /HPF (0.0-6.0) 07/11/19 Unknown Urine RBC (Auto) 1.0 /HPF (0.0-6.0) 07/11/19 Unknown U Epithel Cells (Auto) < 1.0 /HPF (0-13.0) 07/11/19 Unknown Salicylates < 0.3 mg/dL (2.8-20.0) L 07/11/19 15:07 Acetaminophen < 5.0 ug/mL (10.0-30.0) L 07/11/19 15:07 Blood Type O POSITIVE 07/11/19 14:05 Antibody Screen Negative 07/11/19 14:05 Active Medications - Current Medications Current Medications: Generic Name Dose Route Start Last Admin Trade Name Freq PRN Reason Stop Dose Admin Acetaminophen 650 mg 07/11/19 21:55 Tylenol PO Q4H PRN Pain MILD(1-3)/Fever >100.5/AMANDA Albuterol 2.5 mg 07/11/19 22:16 Proventil IH Q3HRT PRN Wheezing Enoxaparin Sodium 40 mg 07/12/19 22:00 07/12/19 23:21 Lovenox SUB-Q 40 mg QDAY@2200 RJ Administration Famotidine 20 mg 07/11/19 22:00 07/13/19 11:49 Pepcid PO 20 mg BID RJ Administration Gabapentin 800 mg 07/12/19 08:00 07/13/19 13:57 Neurontin PO 800 mg TID RJ Administration Azithromycin 500 mg/ Sodium 250 mls @ 250 mls/hr 07/12/19 10:00 07/13/19 12:35 Chloride IV 07/15/19 23:59 250 mls/hr Q24HR RJ Administration Protocol Ceftriaxone Sodium 2 gm in 100 mls @ 200 mls/hr 07/12/19 10:00 07/13/19 11:50 Rocephin/Ns 2 Gm/100 Ml IV 200 mls/hr Q24HR RJ Administration Protocol Insulin Human Lispro 0 unit 07/12/19 07:30 07/13/19 17:32 Humalog SUB-Q Not Given ACHS RJ Protocol Lisinopril 10 mg 07/11/19 22:00 07/13/19 11:50 Zestril PO 10 mg QDAY RJ Administration Metformin HCl 500 mg 07/11/19 22:00 07/13/19 17:46 Glucophage PO 500 mg BIDDIAB RJ Administration Metoclopramide HCl 10 mg 07/11/19 21:55 Reglan IV Q6H PRN Nausea And Vomiting Ondansetron HCl 4 mg 07/11/19 21:55 Zofran IV Q8H PRN Nausea And Vomiting Oxycodone/Acetaminophen 1 tab 07/11/19 21:55 Percocet 5/325 PO Q6H PRN Pain, Moderate (4-6) Sodium Chloride 10 ml 07/11/19 22:00 07/13/19 11:50 Sodium Chloride Flush Syringe 10 Ml IV 10 ml BID RJ Administration Sodium Chloride 10 ml 07/11/19 21:55 Sodium Chloride Flush Syringe 10 Ml IV PRN PRN LINE FLUSH Tamsulosin HCl 0.4 mg 07/11/19 22:00 07/13/19 11:49 Flomax PO 0.4 mg QDAY RJ Administration Nutrition/Malnutrition Assess - Dietary Evaluation Nutrition/Malnutrition Findings: Nutrition Notes Start: 07/12/19 13:22 Freq: Status: Active Protocol: Document 07/12/19 13:22 RM (Rec: 07/12/19 13:38 RM [id number]) Nutrition Notes Need for Assessment generated from: MD Order Initial or Follow up Assessment Other Pertinent Diagnosis Hypothermia, Weakness, LLL Pneu, DM (per ) Current Diet Cardiac w/Ensure Enlive Vanilla 1 daily Labs/Tests Reviewed Pertinent Medications Reviewed Height 5 ft 3 in Weight 56.8 kg Usual Body Weight 61.36 kg [place] Body Weight (kg) 56.36 BMI 22.1 Weight change and time frame 7.43% wt loss X 1 month Weight Status Appropriate Subjective/Other Information Consulted for poor oral intake and malnutrition. Pt and pt in room at time of visit. Pt speaks only Serbian. Director Clinical Pharmacology service used to communicate. Pt spoke on behalf of pt. Stated that [employer] pt ate 2 small meals ie: rice, soup, fish w/1 snack daily. Stated pt ate half of his breakfast and drank half of an Ensure Enlive this morning. Stated pt did not drink more of the Ensure Enlive d/t disliking the taste. Pt UBW was 130 to 140 lbs 1 month ago. No physical signs of malnutrition. Burn Absent Trauma Absent Minimum of two criteria Yes Energy Intake (non-severe) <75% Estimated Energy Requirement >7 days Interpretation of Weight Loss (severe) >5% in 1 month #1 Nutrition Diagnosis Malnutrition Etiology decreased appetite As Evidenced by Signs and Symptoms pt statement that [employer] pt ate 2 small meals w/1 snack daily, 7.43% wt loss X 1 month Is patient on ventilator? No Is Patient Ambulatory and/or Out of Bed Yes REE-([place]-St. Jeor-ambulatory/OOB) [ 1505.569 [id number]] Calculation Used for Recommendations [place]-St Jeor Additional Notes Protein Needs: 68-85g (1.2-1. 5g/kg) Fluid Needs: 1 ml/kcal Nutrition Intervention Change Diet Order: Cardiac/Consistent CHO Add Supplement/Snack (indicate name/kcal D/C Ensure Enlive. Add Ensure /protein ) Clear Apple 1 daily Provides kCal: 240 Provides Protein (gm) 8 Goal #1 Meet at least 75% of calorie and protein needs via PO and ONS intakes Anticipated Discharge Needs: Cardiac/Consistent CHO diet Follow-Up By: 07/14/19 Additional Comments Follow for PO and ONS intakes
[2019-07-13] MEDS: LOVENOX SUB-Q SCH (22:16)
--- NOTE | 2019-07-14 00:06 | Treadmill Report ---
THALLIUM STRESS TEST LEFT VENTRICLE: Left ventricular chamber size is within normal spread. Perfusion study demonstrates homogeneous uptake of the tracer in all segments, no significant defects identified. Gated analysis demonstrates normal left ventricular systolic function, ejection fraction of 64%. CONCLUSION: Normal myocardial perfusion study. JOB# [id number] CA/NTS
[2019-07-14 06:56] LABS: Hematocrit 38.8 % (35.5-45.6); Hemoglobin 12.7 gm/dl (11.8-15.2); Mean Corpuscular HGB Conc 33 % (32-34); Mean Corpuscular Volume 86 fl (84-94); Platelet Count 241 K/mm3 (140-440); Red Blood Count 4.51 M/mm3 (3.65-5.03); Red Cell Distribution Width 13.5 % (13.2-15.2)
[2019-07-14 07:47] LABS: BUN/Creatinine Ratio 26; Blood Urea Nitrogen 18 mg/dL (9-20); Calcium 8.7 mg/dL (8.4-10.2); Hemolysis Index 5
--- NOTE | 2019-07-14 08:02 | Discharge Summary ---
Providers - Providers Date of Admission: 07/11/19 16:34 Attending physician: LARRY ALANIZ MD 07/11/19 19:56 Consult to Dietitian/Nutrition [CONS] Routine Physician Instructions: Reason For Exam: Reason for Consult: Poor oral intake 07/12/19 07:28 Consult to Physician [CONS] Routine Comment: called answ. service/ sarina Consulting Provider: ELSY ROSEN Physician Instructions: Reason For Exam: Pneumonia, Lung nodules 07/12/19 07:30 Consult to Physician [CONS] Routine Comment: called office/ sarina Consulting Provider: KADE GALVEZ Physician Instructions: Reason For Exam: near syncope 07/12/19 10:42 Physical Therapy Evaluation and Treat [CONS] Routine Comment: Reason For Exam: Weakness Primary care physician: MACHINE CONTAINER WASHER Hospitalization Reason for admission: pneumonia Condition: Stable Hospital course: Per documented hx. This is an 84-year-old gentleman. The patient does not know if he has any chronic medical conditions. The patient is brought to the hospital by emergency medical services. History obtained from collateral information obtained from nursing staff, other physicians in this department, and from the patient himself. Apparently, the patient was at [employer] later on today, in choir (unknown if watching or participating), and reportedly had episode of either syncope, or near syncope. Apparently, the patient did not have any prodrome. The patient does not think that he hit his head. The patient complains of feeling weak. He denies physical pain. He cannot tell me how long he is feeling weak for. He doesn't have any recollection of the event in question. No additional history is available at this time. There are no witnesses available at this time for collateral information. Family is not available at this time for collateral information. As per verbal report from nursing team, patient hypotensive in the field with a blood pressure 85. The patient made no complaint of headache, neck pain, chest pain, abdominal pain. The patient did not know if he was having black stool or bright red blood per rectum. Pneumonia LLL Cont Ceftriaxone and Zithromax- complete 7 days of treatment, Vasovegal syncope Likely due to Pneumonia And dehydration from the same Cardiology following Stress test is negative Pulmonary Nodule Out patient follow up as recommend Diabetes mellitus type 2 Fingerstick qac and hs Hypertension Monitor BP- Resume BP meds, Advised family to keep a bp diary AND DISCUSS WITH pcp Mild Malnutrition Disposition: DC-01 TO HOME OR SELFCARE Time spent for discharge: 35 mins Core Measure Documentation - Palliative Care Palliative Care/ Comfort Measures: Not Applicable - Core Measures Any of the following diagnoses?: none Exam - Physical Exam Narrative exam: Gen: Not in acute distress, Returned from test HEENT: Normocephalic, atraumatic Neck: supple, no JVD Heart: S1 and S2 reg, no murmurs, rubs or gallop Lungs: Clear to auscultation, no rhonchi, no wheeze Abd: soft, non tender, non distended, normal BS, Ext: No edema, no clubbing, no cyanosis Neuro: Awake, alert, oriented, moves all ext, no focal neurological signs - Constitutional Vitals: Temp Pulse Resp BP Pulse Ox 98.7 F 77 20 156/79 95 07/14/19 02:47 07/14/19 02:47 07/14/19 02:47 07/14/19 02:47 07/14/19 02:47 Plan Activity: advance as tolerated, fall precautions Diet: low fat Special Instructions: record daily weights, record daily BP diary Follow up with: PRIMARY CARE, [Primary Care Provider] - 3-5 Days ASPEN LINO MD [Staff Physician] - 7 Days Prescriptions: Amoxicillin/Potassium Clav [Augmentin 875-125 Tablet] 1 each PO BID #10 tablet
[2019-07-14] MEDS: HumaLOG SUB-Q SCH ×2 (08:05→12:15)
[2019-07-14] MEDS: NEURONTIN PO SCH ×2 (08:05→14:39)
[2019-07-14] MEDS: GLUCOPHAGE PO SCH (08:35)
[2019-07-14] MEDS: ZESTRIL PO SCH (09:17)
[2019-07-14] MEDS: FLOMAX PO SCH (09:17)
[2019-07-14] MEDS: PEPCID PO SCH (09:17)
[2019-07-14] MEDS: SODIUM CHLORIDE FLUSH SYRINGE 10 ML IV SCH (09:18)
[2019-07-14] MEDS: ROCEPHIN/NS 2 GM/100 ML 2 GM/100 ML BAG IV SCH (09:19)
[2019-07-14] MEDS: ZITHROMAX 500 MG in NACL 0.9% 250ML 250 ML IV SCH (10:10)
--- NOTE | 2019-07-14 11:17 | Progress Note ---
<BISI ROLLINS - Last Filed: 07/14/19 11:15> Assessment and Plan Near syncope Suspected Pneumonia Diabetes Hypertension Normal myocardial perfusion. Echocardiogram shows normal left ventricle systolic function, ejection fraction 60-65%. The patient is stable for cardiac discharge. As outpatient, we will consider event monitoring if there are recurrent symptoms. Subjective Date of service: 07/14/19 Principal diagnosis: Pneumonia Interval history: No cardiac complaints. For planned discharge home today. Objective Vital Signs Temp Pulse Pulse Resp BP Pulse Ox 07/14/19 09:17 64 179/83 07/14/19 09:00 64 18 97 07/14/19 07:16 179/83 07/14/19 07:14 97.5 F L 64 18 187/101 97 07/14/19 02:47 98.7 F 77 20 156/79 95 07/13/19 19:53 98.1 F 81 20 158/71 93 07/13/19 19:51 18 96 07/13/19 13:45 97.9 F 58 L 18 160/73 97 07/13/19 11:50 67 160/76 97 - Physical Examination General: No Apparent Distress HEENT: Positive: PERRL Neck: Positive: trachea midline Cardiac: Positive: Reg Rate and Rhythm Lungs: Positive: Normal Breath Sounds Neuro: Positive: Grossly Intact Extremities: Absent: edema - Labs and Meds CBC 07/14/19 Range/Units 05:48 WBC 10.5 (4.5-11.0) K/mm3 RBC 4.51 (3.65-5.03) M/mm3 Hgb 12.7 (11.8-15.2) gm/dl Hct 38.8 (35.5-45.6) % Plt Count 241 (140-440) K/mm3 Comprehensive Metabolic Panel 07/14/19 Range/Units 05:48 Sodium 144 (137-145) mmol/L Potassium 3.8 (3.6-5.0) mmol/L Chloride 108.9 H (98-107) mmol/L Carbon Dioxide 20 L (22-30) mmol/L BUN 18 (9-20) mg/dL Creatinine 0.7 L (0.8-1.5) mg/dL Glucose 191 H (75-100) mg/dL Calcium 8.7 (8.4-10.2) mg/dL <FRANCO WINN - Last Filed: 07/14/19 15:38> Assessment and Plan I have seen and evaluated the patient and agree with the assessment and plan. The patient has a normal myocardial perfusion. Echocardiogram shows normal left ventricle systolic function, ejection fraction 60-65%. No further cardiac evaluation while in patient. Will follow up outpat ient for consideration for event monitor. Objective Vital Signs Temp Pulse Pulse Resp BP Pulse Ox 07/14/19 15:31 67 152/68 07/14/19 14:38 67 152/68 98 07/14/19 13:17 98.0 F 75 20 169/79 97 07/14/19 11:16 72 127/104 94 07/14/19 09:17 64 179/83 07/14/19 09:00 64 18 97 07/14/19 07:16 179/83 07/14/19 07:14 97.5 F L 64 18 187/101 97 07/14/19 02:47 98.7 F 77 20 156/79 95 07/13/19 19:53 98.1 F 81 20 158/71 93 07/13/19 19:51 18 96 - Labs and Meds CBC 07/14/19 Range/Units 05:48 WBC 10.5 (4.5-11.0) K/mm3 RBC 4.51 (3.65-5.03) M/mm3 Hgb 12.7 (11.8-15.2) gm/dl Hct 38.8 (35.5-45.6) % Plt Count 241 (140-440) K/mm3 Comprehensive Metabolic Panel 07/14/19 Range/Units 05:48 Sodium 144 (137-145) mmol/L Potassium 3.8 (3.6-5.0) mmol/L Chloride 108.9 H (98-107) mmol/L Carbon Dioxide 20 L (22-30) mmol/L BUN 18 (9-20) mg/dL Creatinine 0.7 L (0.8-1.5) mg/dL Glucose 191 H (75-100) mg/dL Calcium 8.7 (8.4-10.2) mg/dL
--- NOTE | 2019-07-14 13:16 | Progress Note ---
Assessment and Plan Imp: 1. CAP, JENNY 2. Pulm nodule RUL 3. Pre-syncope 4. HTN Rec: 1. Agree w/ Rocephin/Fredericithro; complete at least 7 days of ABX 2. Outpatient PET now versus CT chest in 3 months recommended for RUL nodule, and this will be used to ensure the JENNY process resolves as well; this was discussed in detail with patient and , and I also left a note for them to give their daughter stating the same; patient is followed in the [facility] 3. Cardiac work-up negative 4. Agree with d/c home Subjective Date of service: 07/14/19 Principal diagnosis: Pneumonia Interval history: No events. No complaints. Active Medications Acetaminophen (Tylenol) 650 mg PO Q4H PRN PRN Reason: Pain MILD(1-3)/Fever >100.5/AMANDA Albuterol (Proventil) 2.5 mg IH Q3HRT PRN PRN Reason: Wheezing Enoxaparin Sodium (Lovenox) 40 mg SUB-Q QDAY@2200 [facility] Last Admin: 07/13/19 22:16 Dose: 40 mg Documented by: Famotidine (Pepcid) 20 mg PO BID [facility] Last Admin: 07/14/19 09:17 Dose: 20 mg Documented by: Gabapentin (Neurontin) 800 mg PO TID [facility] Last Admin: 07/14/19 08:05 Dose: 800 mg Documented by: Azithromycin 500 mg/ Sodium (Chloride) 250 mls @ 250 mls/hr IV Q24HR RJ; Protocol Stop: 07/15/19 23:59 Last Admin: 07/14/19 10:10 Dose: 250 mls/hr Documented by: Ceftriaxone Sodium (Rocephin/Ns 2 Gm/100 Ml) 2 gm in 100 mls @ 200 mls/hr IV Q24HR RJ; Protocol Stop: 07/17/19 10:29 Last Admin: 07/14/19 09:19 Dose: 200 mls/hr Documented by: Insulin Human Lispro (Humalog) 0 unit SUB-Q ACHS [facility]; Protocol Last Admin: 07/14/19 12:15 Dose: Not Given Documented by: Lisinopril (Zestril) 10 mg PO QDAY [facility] Last Admin: 07/14/19 09:17 Dose: 10 mg Documented by: Metformin HCl (Glucophage) 500 mg PO BIDDIAB [facility] Last Admin: 07/14/19 08:35 Dose: 500 mg Documented by: Metoclopramide HCl (Reglan) 10 mg IV Q6H PRN PRN Reason: Nausea And Vomiting Ondansetron HCl (Zofran) 4 mg IV Q8H PRN PRN Reason: Nausea And Vomiting Oxycodone/Acetaminophen (Percocet 5/325) 1 tab PO Q6H PRN PRN Reason: Pain, Moderate (4-6) Sodium Chloride (Sodium Chloride Flush Syringe 10 Ml) 10 ml IV BID [facility] Last Admin: 07/14/19 09:18 Dose: 10 ml Documented by: Sodium Chloride (Sodium Chloride Flush Syringe 10 Ml) 10 ml IV PRN PRN PRN Reason: LINE FLUSH Tamsulosin HCl (Flomax) 0.4 mg PO QDAY [facility] Last Admin: 07/14/19 09:17 Dose: 0.4 mg Documented by: Objective Vital Signs - 12hr 07/14/19 07/14/19 07/14/19 02:47 07:14 07:16 Temperature 98.7 F 97.5 F L Pulse Rate 77 64 Pulse Rate [ Right Radial] Respiratory 20 18 Rate Blood Pressure 156/79 187/101 179/83 O2 Sat by Pulse 95 97 Oximetry 07/14/19 07/14/19 09:00 09:17 Temperature Pulse Rate 64 Pulse Rate [ 64 Right Radial] Respiratory 18 Rate Blood Pressure 179/83 O2 Sat by Pulse 97 Oximetry Constitutional: no acute distress, alert Eyes: non-icteric Neck: supple Effort: normal Ascultation: Bilateral: clear Cardiovascular: regular rate and rhythm (no mrg) Gastrointestinal: normoactive bowel sounds, soft, non-tender, non-distended Integumentary: normal Extremities: no cyanosis, no edema, pink and warm Neurologic: normal mental status, non-focal exam, pupils equal and round, CN II- XII normal Psychiatric: mood appropriate, affect normal CBC and BMP: 07/14/19 05:48 07/14/19 05:48 ABG, PT/INR, D-dimer: PT/INR, D-dimer PT 13.8 Sec. (12.2-14.9) 07/11/19 13:59 INR 1.09 (0.87-1.13) 07/11/19 13:59 D-Dimer 194.43 ng/mlDDU (0-234) 07/11/19 13:59 Abnormal lab findings: Abnormal Labs 07/11/19 07/11/19 07/11/19 13:59 13:59 13:59 WBC [place] % (Auto) 8.0 H Eos % (Auto) 12.4 H Eos # 1.0 H Chloride Carbon Dioxide 19 L Creatinine Glucose 174 H POC Glucose Hemoglobin A1c 7.9 H Lactic Acid Calcium Total Protein Albumin Salicylates Acetaminophen 07/11/19 07/11/19 07/11/19 15:07 15:07 15:07 WBC [place] % (Auto) Eos % (Auto) Eos # Chloride Carbon Dioxide Creatinine Glucose POC Glucose Hemoglobin A1c Lactic Acid 3.90 H* Calcium Total Protein Albumin Salicylates < 0.3 L Acetaminophen < 5.0 L 07/11/19 07/11/19 07/12/19 15:58 23:06 05:27 WBC [place] % (Auto) 7.9 H Eos % (Auto) 12.8 H Eos # 1.2 H Chloride Carbon Dioxide Creatinine Glucose POC Glucose 147 H 187 H Hemoglobin A1c Lactic Acid Calcium Total Protein Albumin Salicylates Acetaminophen 07/12/19 07/12/19 07/12/19 05:27 07:47 11:41 WBC [place] % (Auto) Eos % (Auto) Eos # Chloride 111.4 H Carbon Dioxide 19 L Creatinine 0.7 L Glucose 156 H POC Glucose 120 H 189 H Hemoglobin A1c Lactic Acid Calcium 7.8 L Total Protein 6.0 L Albumin 3.4 L Salicylates Acetaminophen 07/12/19 07/12/19 07/13/19 16:35 20:49 05:56 WBC 11.3 H [place] % (Auto) Eos % (Auto) Eos # Chloride Carbon Dioxide Creatinine Glucose POC Glucose 119 H 175 H Hemoglobin A1c Lactic Acid Calcium Total Protein Albumin Salicylates Acetaminophen 07/13/19 07/13/19 07/13/19 05:56 07:24 11:53 WBC [place] % (Auto) Eos % (Auto) Eos # Chloride 107.9 H Carbon Dioxide 21 L Creatinine 0.6 L Glucose 127 H POC Glucose 159 H 146 H Hemoglobin A1c Lactic Acid Calcium Total Protein Albumin Salicylates Acetaminophen 07/13/19 07/13/19 07/14/19 16:31 21:52 05:48 WBC [place] % (Auto) Eos % (Auto) Eos # Chloride 108.9 H Carbon Dioxide 20 L Creatinine 0.7 L Glucose 191 H POC Glucose 122 H 262 H Hemoglobin A1c Lactic Acid Calcium Total Protein Albumin Salicylates Acetaminophen 07/14/19 07:12 WBC [place] % (Auto) Eos % (Auto) Eos # Chloride Carbon Dioxide Creatinine Glucose POC Glucose 150 H Hemoglobin A1c Lactic Acid Calcium Total Protein Albumin Salicylates Acetaminophen Chest x-ray: report reviewed, image reviewed CT scan - chest: report reviewed, image reviewed
[2019-07-14 14:39] VITALS: BP 152/68
[2019-07-14] MEDS ORDERED: APRESOLINE IV ONE (15:00)
== END 2019-07-14 15:20 | disposition home or self-care (01) | DRG 194 ==
LOC: ED 13:40 → 2B-ACE 16:34
PROVIDERS: ADMIT Internal Medicine; ATTEND Internal Medicine
DX: J18.1 Lobar pneumonia, unspecified organism (principal); E44.1 Mild protein-calorie malnutrition; T68.XXXA Hypothermia, initial encounter; I10 Essential (primary) hypertension; E86.0 Dehydration; R91.1 Solitary pulmonary nodule; N40.0 Benign prostatic hyperplasia without lower urinary tract symptoms; E11.42 Type 2 diabetes mellitus with diabetic polyneuropathy; Z68.22 Body mass index [BMI] 22.0-22.9, adult; Z82.49 Family history of ischemic heart disease and other diseases of the circulatory system; Z79.899 Other long term (current) drug therapy
CPT/HCPCS: 36415; 70450; 71045; 71275; 74177; 78452; 80048; 80053; 80320; 81001; 82140; 82271; 82550; 82553; 82962; 83036; 83735; 84439; 84443; 84484; 85025; 85027; 85379; 85610; 86850; 86900; 86901; 87040; 87086; 93005; 93010; 93017; 93306; 94640; 96361; 96365; 96375; G0378; A9502; G0480; J0360; J0456; J0696; J1650; J1815; J2785; J7030; J7050; Q9967